=== PATIENT | female | born 1950 | race Caucasian/White ===

== ENCOUNTER 2016-08-01 12:51 | Emergency (ER) | payer OTHER, MEDICARE ==
[~2016-08-01] VITALS: Ht 165.1 cm; Wt 50.4 kg
[~2016-08-01 12:51] MED LIST: RIVA20 PO
[2016-08-01 13:08] VITALS: BP 137/73; PULSE 81; RESP 18; TEMP 98.8; O2SAT 95
[2016-08-01] MEDS ORDERED: ACETAMINOPHEN 325 MG TAB PO ONE (14:15)
[2016-08-01] MEDS ORDERED: SODIUM CHLORIDE 0.9% FLUSH 5 ML FLUSH IVF PRN (14:15)
[2016-08-01 14:18] LABS: BLOOD, URINE SMALL (NEG); GLUCOSE,URINE NEG (NEG); KETONE, URINE NEG (NEG); NITRITE,URINE NEG (NEG); PH, URINE 5.5 (5.0-8.5)
[2016-08-01 14:23] LABS: METHOD OF COLLECTION CLEAN CATCH; SQUAMOUS EPITHELIAL CELL URINE 0-5 /hpf (0-5); URINE COLOR YELLOW (YELLW/STRAW); WBC, URINE 0-2 /hpf (0-5)
[2016-08-01 14:24] LABS: COMMENT (UR) CULT NOT INDICATED; CULTURE IF INDICATED CULT NOT INDICATED
[2016-08-01 14:33] LABS: AUTOMATED NEUTROPHIL # 4.5 TH/MM3 (1.8-7.7); BASOPHIL # 0.3 TH/MM3 (0-0.2); BASOPHIL % 3.5 % (0.0-2.0); EOSINOPHIL # 0.1 TH/MM3 (0-0.4); EOSINOPHIL % 0.9 % (0.0-4.0); HEMATOCRIT 44.5 % (35.0-46.0); HEMO FLAGS DIFF FINAL; LYMPH % 33.8 % (9.0-44.0); LYMPHOCYTE # 2.7 TH/MM3 (1.0-4.8); MEAN CORPUSCULAR HEMOGLOBIN 30.6 PG (27.0-34.0); MEAN CORPUSCULAR HGB CONC 33.6 % (32.0-36.0); MONO % 4.7 % (0.0-8.0); NEUT % 57.1 % (16.0-70.0); PLATELET COUNT 256 TH/MM3 (150-450); RED CELL DISTRIBUTION WIDTH 12.9 % (11.6-17.2)
[2016-08-01 14:43] LABS: CHLORIDE 109 MEQ/L (98-107); SODIUM (NA) 144 MEQ/L (136-145)
[2016-08-01 14:44] VITALS: O2SAT 97
[2016-08-01 14:47] LABS: ANION GAP 8 MEQ/L (5-15); APTT (PATIENT) 21.2 SEC (24.3-30.1); BLOOD UREA NITROGEN 11 MG/DL (7-18); PROTHROMBIN TIME - PATIENT 10.7 SEC (9.8-11.6)
[2016-08-01 14:50] LABS: ALT (GPT) 17 U/L (10-53); AST (GOT) 17 U/L (15-37); GLOMERULAR FILTRATION RATE 63 ML/MIN (>89)
[2016-08-01 14:52] LABS: TOTAL BILIRUBIN ADULT 0.6 MG/DL (0.2-1.0)
[2016-08-01 14:53] LABS: ALKALINE PHOSPHATASE 93 U/L (45-117)
--- NOTE | 2016-08-01 14:58 | PD ---
HPI Chief Complaint: Abdominal Pain Time Seen by Provider: 13:55 Travel History International Travel<30 days: No Contact w/Intl Traveler<30days: No Traveled to known affect area: No History of Present Illness HPI Patient is a 65-year-old female presents emergency department for a week's worth history of abdominal pain nausea and vomiting which is nonbloody and nonbilious. No diarrhea no constipation. Patient states she does have a history of diverticulitis but this appears somewhat different. No fevers. No blood the stool. Patient denies any chest pain and shortness of breath. States her pain is primarily on the left side of her abdomen and periumbilical. Cramping in nature. PFSH Past Medical History Hx Anticoagulant Therapy: Yes Anxiety: Yes Heart Rhythm Problems: No Cardiac Catheterization: No High Cholesterol: No Chest Pain: Yes Congestive Heart Failure: No COPD: Yes Cerebrovascular Accident: No Diabetes: No Diminished Hearing: No Diverticulitis: Yes Heparin Induced Thrombocytopen: No Hypertension: No Kidney Stones: Yes Respiratory: Yes Immunizations Current: Yes Myocardial Infarction: No Pneumonia: Yes Influenza Vaccination: No ?: Not Menopausal: Yes : 6 Para: 6 Tubal Ligation: Yes Past Surgical History Abdominal Surgery: Yes (strangulated hernia repair x2) Section: Yes (X 1) Coronary Artery Bypass Graft: No Pacemaker: No Family History Family Myocardial Infarction: Yes (FATHER PASSED @ AGE 44 FROM [place]) Social History Alcohol Use: No Tobacco Use: Yes (/ ppd) Substance Use: No Allergies-Medications (Allergen,Severity, Reaction): Coded Allergies: Bactrim (Verified Allergy, Severe, 08/01/16) HIVES Reported Meds & Prescriptions Reported Meds & Active Scripts Active Zofran Odt (Ondansetron Odt) 4 Mg Tab 4 Mg SL Q6HR PRN Bentyl (Dicyclomine HCl) 10 Mg Cap 10 Mg PO TID PRN Review of Systems Except as stated in HPI: all other systems reviewed are Neg Physical Exam Narrative GENERAL: [Well-developed, thin but in no apparent distress. SKIN: Warm and dry. HEAD: Atraumatic. Normocephalic. EYES: Pupils equal and round. No scleral icterus. No injection or drainage. ENT: No nasal bleeding or discharge. Mucous membranes pink and moist. NECK: Trachea midline. No JVD. CARDIOVASCULAR: Regular rate and rhythm. No murmur appreciated. RESPIRATORY: No accessory muscle use. Clear to auscultation. Breath sounds equal bilaterally. GASTROINTESTINAL: Abdomen soft, minimal tenderness left upper quadrant., nondistended. Hepatic and splenic margins not palpable. No rebound no percussive tenderness. MUSCULOSKELETAL: No obvious deformities. No clubbing. No cyanosis. No edema. NEUROLOGICAL: Awake and alert. No obvious cranial nerve deficits. Motor grossly within normal limits. Normal speech. PSYCHIATRIC: Appropriate mood and affect; insight and judgment normal. Data Data Last Documented VS Vital Signs Date Time Temp Pulse Resp B/P Pulse Ox O2 Delivery O2 Flow Rate FiO2 08/01/16 16:44 67 18 126/62 96 Room Air 08/01/16 13:08 98.8 Orders Complete Blood Count With Diff (08/01/16 14:07) Comprehensive Metabolic Panel (08/01/16 14:07) Lipase (08/01/16 14:07) Lactic Acid (08/01/16 14:07) Prothrombin Time / Inr (Pt) (08/01/16 14:07) Act Partial Throm Time (Ptt) (08/01/16 14:07) Urinalysis - C+S If Indicated (08/01/16 14:07) Ct Abd/Pel W Iv Contrast(Rout) (08/01/16 14:07) Iv Access Insert/Monitor (08/01/16 14:07) Ecg Monitoring (08/01/16 14:07) Oximetry (08/01/16 14:07) Sodium Chloride 0.9% Flush (Ns Flush) (08/01/16 14:15) Electrocardiogram (08/01/16 14:07) Acetaminophen (Tylenol) (08/01/16 14:15) Troponin I (08/01/16 14:48) Iohexol 350 Inj (Omnipaque 350 Inj) (08/01/16 15:59) Labs Laboratory Tests Test 08/01/16 08/01/16 14:00 14:25 Urine Collection Type CLEAN CATCH Urine Color YELLOW Urine Turbidity CLEAR Urine pH 5.5 Urine Specific [place] 1.018 Urine Protein NEG mg/dL Urine Glucose (UA) NEG mg/dL Urine Ketones NEG mg/dL Urine Occult Blood SMALL Urine Nitrite NEG Urine Bilirubin NEG Urine Leukocyte Esterase NEG Urine RBC 4-9 /hpf Urine WBC 0-2 /hpf Urine Squamous Epithelial 0-5 /hpf Cells Microscopic Urinalysis Comment CULT NOT INDICATED Urine Collection Time 14:00 White Blood Count 8.0 TH/MM3 Red Blood Count 4.90 MIL/MM3 Hemoglobin 15.0 GM/DL Hematocrit 44.5 % Mean Corpuscular Volume 91.0 FL Mean Corpuscular Hemoglobin 30.6 PG Mean Corpuscular Hemoglobin 33.6 % Concent Red Cell Distribution Width 12.9 % Platelet Count 256 TH/MM3 Mean Platelet Volume 8.2 FL Neutrophils (%) (Auto) 57.1 % Lymphocytes (%) (Auto) 33.8 % Monocytes (%) (Auto) 4.7 % Eosinophils (%) (Auto) 0.9 % Basophils (%) (Auto) 3.5 % Neutrophils # (Auto) 4.5 TH/MM3 Lymphocytes # (Auto) 2.7 TH/MM3 Monocytes # (Auto) 0.4 TH/MM3 Eosinophils # (Auto) 0.1 TH/MM3 Basophils # (Auto) 0.3 TH/MM3 CBC Comment DIFF FINAL Differential Comment Prothrombin Time 10.7 SEC Prothromb Time International 1.0 RATIO Ratio Activated Partial 21.2 SEC Thromboplast Time Sodium Level 144 MEQ/L Potassium Level 4.0 MEQ/L Chloride Level 109 MEQ/L Carbon Dioxide Level 27.0 MEQ/L Anion Gap 8 MEQ/L Blood Urea Nitrogen 11 MG/DL Creatinine 0.89 MG/DL Estimat Glomerular Filtration 63 ML/MIN Rate Random Glucose 84 MG/DL Lactic Acid Level 0.6 mmol/L Calcium Level 9.0 MG/DL Total Bilirubin 0.6 MG/DL Aspartate Amino Transf 17 U/L (AST/SGOT) Alanine Aminotransferase 17 U/L (ALT/SGPT) Alkaline Phosphatase 93 U/L Troponin I LESS THAN 0.02 NG/ML Total Protein 7.6 GM/DL Albumin 3.7 GM/DL Lipase 98 U/L [facility] Medical Decision Making Medical Screen Exam Complete: Yes Emergency Medical Condition: Yes Interpretation(s) EKG shows normal sinus rhythm with a borderline right axis deviation. Normal R- wave progression. No concerning ST-T changes. Possible left atrial abnormality. This is a borderline EKG. Differential Diagnosis Diverticulitis, diverticulosis, ACS unlikely, gastritis, pancreatitis Narrative Course Patient 65-year-old female presents with periumbilical pain radiating to left side. She appears well in no apparent distress. She was offered pain medicine states she is driving home therefore given Tylenol. Patient on review of her records has presented for similar complaints in the past. Her labs are reassuring troponin negative lipase negative CBC and CMP negative. CT abdomen performed and shows no acute abnormality. She has uncompensated diverticulosis. Discussed the results with the patient and recommend follow-up with a GI doctor as well as her primary care physician. Discussed return to ED criteria. She stable for discharge. Diagnosis Primary Impression: Epigastric abdominal pain Referrals: Meghan Chatterjee MD Med/Other Pt SpecificInfo: Prescription(s) given Scripts Ondansetron Odt (Zofran Odt)4 Mg Tab4 Mg SL Q6HR PRN (Nausea/Vomiting) #30 TAB Ref 0 Prov:Nicolas Mi MD 08/01/16 Dicyclomine (Bentyl)10 Mg Cap10 Mg PO TID PRN (Bowel Management) #20 CAP Ref 0 Prov:Nicolas Mi MD 08/01/16 Disposition: 01 DISCHARGE HOME Condition: Stable Nicolas Mi MD Aug 01, 2016 14:58
[2016-08-01] MEDS ORDERED: IOHEXOL 350 MG/ML 10 ML VIAL (for RAD DIAG) IV ONE (15:59)
[2016-08-01 16:44] VITALS: BP 126/62; PULSE 67; RESP 18; O2SAT 96
--- NOTE | 2016-08-01 16:45 | RADHPO ---
EXAM DATE/TIME: 08/01/2016 15:53 [facility] COMPARISON: CT ABDOMEN & PELVIS W CONTRAST, May 05, 2015, 18:00. INDICATIONS : Mid and lower abdominal pain radiating into lower back for one week. IV CONTRAST: 100 cc Omnipaque 350 (iohexol) IV ORAL CONTRAST: No oral contrast ingested. RADIATION DOSE: 5.42 CTDIvol (mGy) MEDICAL HISTORY : Chronic obstructive pulmonary disease. SURGICAL HISTORY : Tubal ligation. section. Strangulated hernia ENCOUNTER: Initial ACUITY: 1 week PAIN SCALE: 5/10 LOCATION: Right umbilical lower back TECHNIQUE: Volumetric scanning of the abdomen and pelvis was performed. Using automated exposure control and ad justment of the mA and/or kV according to patient size, radiation dose was kept as low as reasonably achievable to obtain optimal diagnostic quality images. FINDINGS: There is mild hepatomegaly which is unchanged. No focal hepatic mass is noted. No biliary ductal dila tation is noted. The gallbladder is unremarkable. The spleen is normal. The pancreas is normal. T he adrenal glands are stable. Right renal atrophy is again noted and unchanged. A tiny left renal cy st is stable. No hydronephrosis or new solid renal mass is noted. The abdominal aorta is calcified b ut is not aneurysmally dilated. The inferior vena cava is normal. There is no paraaortic, retroperi toneal or mesenteric lymphadenopathy. Uncomplicated sigmoid diverticulosis is noted. The uterus is unremarkable. The urinary bladder is unremarkable. Degenerative changes and scoliosis of the lumbar spine are noted. Fibrotic scarring is noted within the lung bases. There is a small umbilical patrick ia containing only fat. CONCLUSION: 1. Uncomplicated sigmoid diverticulosis. 2. Hepatomegaly. 3. Stable right renal atrophy. 4. Tiny stable left renal cyst. 5. Small umbilical hernia containing only fat. 6. Degenerative changes and scoliosis of the lumbar spine. Nicolas Payne MD on August 01, 2016 at 16:22 Board Certified Radiologist. This report was verified electronically.
[2016-08-01] MEDS ORDERED: ZOFR4TAB3 SL (17:04)
[2016-08-01] MEDS ORDERED: DICY10 PO (17:04)
--- NOTE | 2016-08-02 22:52 | EKG ---
Date Performed: 08/01/2016 Time Performed: 14:15:40 PTAGE: 65 years EKG: Sinus rhythm Possible left atrial abnormality Indeterminate axis Borderline ECG PREVIOUS TRACING : 04/22/2015 13.25 Compared to prior tracing no significant change DOCTOR: Florin Tay Interpretating Date/Time 08/02/2016 22:50:06
== END 2016-08-01 17:22 | disposition home or self-care (01) ==
LOC: PHED 12:51
DX: R10.13 Epigastric pain (principal); J44.9 Chronic obstructive pulmonary disease, unspecified; F17.200 Nicotine dependence, unspecified, uncomplicated
CPT/HCPCS: 74177; 80053; 81001; 83605; 83690; 84484; 85025; 85610; 85730; 93005; 99284; Q9967

== ENCOUNTER 2017-01-15 16:31 | Observation (INO) | payer MEDICARE, OTHER ==
[2017-01-15] VITALS (11 sets, daily range): BP systolic 96–150; BP diastolic 56–77; PULSE 70–88; RESP 16–20; TEMP 98.2–98.4; O2SAT 94–98
[~2017-01-15] VITALS: Ht 170.2 cm; Wt 54.1 kg
[~2017-01-15 16:31] MED LIST changes: +DICY10 PO; -RIVA20 PO; +ZOFR4TAB3 SL
[2017-01-15] MEDS ORDERED: ASPIRIN 81 MG CHEW TAB PO ONE (17:00)
[2017-01-15] MEDS ORDERED: SODIUM CHLORIDE 0.9% FLUSH 10 ML FLUSH IVF PRN (17:00)
[2017-01-15] MEDS: NITROGLYCERIN 0.4 MG SL 25 TABS/BTL SL SCH ×3 (17:10→17:19)
[2017-01-15 17:12] LABS: AUTOMATED NEUTROPHIL # 5.1 TH/MM3 (1.8-7.7); BASOPHIL # 0.1 TH/MM3 (0-0.2); BASOPHIL % 1.2 % (0.0-2.0); EOSINOPHIL # 0.1 TH/MM3 (0-0.4); EOSINOPHIL % 1.1 % (0.0-4.0); HEMO FLAGS DIFF FINAL; LYMPHOCYTE # 2.7 TH/MM3 (1.0-4.8); MEAN CELL VOLUME 90.7 FL (80.0-100.0); MEAN CORPUSCULAR HEMOGLOBIN 29.9 PG (27.0-34.0); MONO % 6.5 % (0.0-8.0); NEUT % 60.2 % (16.0-70.0); PLATELET COUNT 322 TH/MM3 (150-450); RED BLOOD COUNT 4.74 MIL/MM3 (4.00-5.30); RED CELL DISTRIBUTION WIDTH 12.3 % (11.6-17.2); WHITE BLOOD COUNT 8.6 TH/MM3 (4.0-11.0)
[2017-01-15 17:19] LABS: CHLORIDE 108 MEQ/L (98-107); POTASSIUM 3.8 MEQ/L (3.5-5.1); SODIUM (NA) 142 MEQ/L (136-145)
[2017-01-15 17:23] LABS: ANION GAP 6 MEQ/L (5-15); BICARBONATE 27.9 MEQ/L (21.0-32.0); BLOOD UREA NITROGEN 12 MG/DL (7-18); MAGNESIUM 2.3 MG/DL (1.5-2.5)
--- NOTE | 2017-01-15 17:25 | RADRPT ---
EXAM DATE/TIME: 01/15/2017 16:54 [facility] COMPARISON: CHEST SINGLE AP, July 18, 2014, 14:04. INDICATIONS : Chest pain. MEDICAL HISTORY : Chronic obstructive pulmonary disease. SURGICAL HISTORY : None. ENCOUNTER: Initial ACUITY: 1 day PAIN SCORE: 5/10 LOCATION: Left chest FINDINGS: A single view of the chest demonstrates the lungs to be symmetrically aerated without evidence of mas s, infiltrate or effusion. The cardiomediastinal contours are unremarkable. Osseous structures are intact. CONCLUSION: No acute disease. Saji Das Jr., MD on January 15, 2017 at 17:23 Board Certified Radiologist. This report was verified electronically.
[2017-01-15 17:26] LABS: GLOMERULAR FILTRATION RATE 71 ML/MIN (>89)
[2017-01-15 17:30] LABS: APTT (PATIENT) 26.4 SEC (24.3-30.1); PROTHROMBIN TIME - PATIENT 10.7 SEC (9.8-11.6)
[2017-01-15 17:40] LABS: CREATINE KINASE 74 U/L (26-192)
--- NOTE | 2017-01-15 17:54 | PD ---
HPI Chief Complaint: Chest Pain Time Seen by Provider: 16:41 Travel History International Travel<30 days: No Contact w/Intl Traveler<30days: No Traveled to known affect area: No History of Present Illness HPI 66-year-old female here for evaluation of chest pain. Patient port that she has been smoking cigarettes since age 17 usually about a half a pack per day. 2 days ago she decided that she wanted to stop smoking, and started using 31 mg nicotine patch. Yesterday the patient had a fluttering sensation in her chest. Today she has been having substernal chest pressure that has been worsening throughout the day today and started when she woke up this morning. She denies any known history of cardiac disease, however her father of an [place] at the age of 45. Patient reports history of DVT several years ago during a hospitalization which may been from a PICC line that she had. She is not currently on any anti-coagulation. She denies dyspnea. No fevers, chills, cough, or recent illness. No paresthesias or motor deficits. No recent travel or immobilization. Currently the pain is 5 out of 10, substernal, described as pressure/tightness, radiates to her right shoulder. PFSH Past Medical History Hx Anticoagulant Therapy: Yes Anxiety: Yes Heart Rhythm Problems: No Cardiac Catheterization: No High Cholesterol: No Chest Pain: Yes Congestive Heart Failure: No COPD: Yes Cerebrovascular Accident: No Diabetes: No Diminished Hearing: No Diverticulitis: Yes Heparin Induced Thrombocytopen: No Hypertension: No Kidney Stones: Yes Respiratory: Yes Immunizations Current: Yes Myocardial Infarction: No Pneumonia: Yes Influenza Vaccination: No ?: Not Menopausal: Yes : 6 Para: 6 Tubal Ligation: Yes Past Surgical History Abdominal Surgery: Yes (strangulated hernia repair x2) Section: Yes (X 1) Coronary Artery Bypass Graft: No Pacemaker: No Family History Family Myocardial Infarction: Yes (FATHER PASSED @ AGE 44 FROM [place]) Social History Alcohol Use: No Tobacco Use: Yes (3/4 ppd) Substance Use: No Allergies-Medications (Allergen,Severity, Reaction): Coded Allergies: Bactrim (Verified Allergy, Severe, HIVES, 01/15/17) Reported Meds & Prescriptions Reported Meds & Active Scripts Active No Active Prescriptions or Reported Medications Review of Systems Except as stated in HPI: all other systems reviewed are Neg Physical Exam Narrative GENERAL: Well-developed, thin, no apparent distress. SKIN: Focused skin assessment warm/dry. HEAD: Atraumatic. Normocephalic. EYES: Pupils equal and round. No scleral icterus. No injection or drainage. ENT: Mucous membranes pink and moist. NECK: Trachea midline. No JVD. CARDIOVASCULAR: Regular rate and rhythm. Distal pulses brisk and equal bilaterally. RESPIRATORY: No accessory muscle use. Clear to auscultation. Breath sounds equal bilaterally. GASTROINTESTINAL: Abdomen soft, non-tender, nondistended. MUSCULOSKELETAL: No obvious deformities. No clubbing. No cyanosis. No edema. NEUROLOGICAL: Awake and alert. No obvious cranial nerve deficits. Motor grossly within normal limits. Normal speech. PSYCHIATRIC: Appropriate mood and affect; insight and judgment normal. Data Data Last Documented VS Vital Signs Date Time Temp Pulse Resp B/P Pulse Ox O2 Delivery O2 Flow Rate FiO2 01/15/17 17:28 16 01/15/17 17:26 78 96/59 98 Room Air 01/15/17 16:39 98.4 Orders Basic Metabolic Panel (Bmp) (01/15/17 16:52) Ckmb (Isoenzyme) Profile (01/15/17 16:52) Complete Blood Count With Diff (01/15/17 16:52) D-Dimer (01/15/17 16:52) Magnesium (Mg) (01/15/17 16:52) Prothrombin Time / Inr (Pt) (01/15/17 16:52) Act Partial Throm Time (Ptt) (01/15/17 16:52) Troponin I (01/15/17 16:52) Chest, Single Ap (01/15/17 16:52) Ecg Monitoring (01/15/17 16:52) Bilateral Bp Monitoring (01/15/17 16:52) Iv Access Insert/Monitor (01/15/17 16:52) Oximetry (01/15/17 16:52) Oxygen Administration (01/15/17 16:52) Aspirin Chew (Aspirin Chew) (01/15/17 17:00) Sodium Chloride 0.9% Flush (Ns Flush) (01/15/17 17:00) Nitroglycerin Sl (Nitrostat Sl) (01/15/17 17:00) Labs Laboratory Tests Test 01/15/17 17:00 White Blood Count 8.6 TH/MM3 Red Blood Count 4.74 MIL/MM3 Hemoglobin 14.2 GM/DL Hematocrit 43.0 % Mean Corpuscular Volume 90.7 FL Mean Corpuscular Hemoglobin 29.9 PG Mean Corpuscular Hemoglobin 33.0 % Concent Red Cell Distribution Width 12.3 % Platelet Count 322 TH/MM3 Mean Platelet Volume 8.0 FL Neutrophils (%) (Auto) 60.2 % Lymphocytes (%) (Auto) 31.0 % Monocytes (%) (Auto) 6.5 % Eosinophils (%) (Auto) 1.1 % Basophils (%) (Auto) 1.2 % Neutrophils # (Auto) 5.1 TH/MM3 Lymphocytes # (Auto) 2.7 TH/MM3 Monocytes # (Auto) 0.6 TH/MM3 Eosinophils # (Auto) 0.1 TH/MM3 Basophils # (Auto) 0.1 TH/MM3 CBC Comment DIFF FINAL Differential Comment Prothrombin Time 10.7 SEC Prothromb Time International 1.0 RATIO Ratio Activated Partial 26.4 SEC Thromboplast Time D-Dimer Quantitative (PE/DVT) 0.25 MG/L FEU Sodium Level 142 MEQ/L Potassium Level 3.8 MEQ/L Chloride Level 108 MEQ/L Carbon Dioxide Level 27.9 MEQ/L Anion Gap 6 MEQ/L Blood Urea Nitrogen 12 MG/DL Creatinine 0.81 MG/DL Estimat Glomerular Filtration 71 ML/MIN Rate Random Glucose 121 MG/DL Calcium Level 9.7 MG/DL Magnesium Level 2.3 MG/DL Total Creatine Kinase 74 U/L Troponin I LESS THAN 0.02 NG/ML MDM Medical Decision Making Medical Screen Exam Complete: Yes Emergency Medical Condition: Yes Medical Record Reviewed: Yes Interpretation(s) EKG: Sinus, rate 77, rightward axis, and normal intervals, possible RVH, no acute ischemic abnormality. Differential Diagnosis ACS, pneumothorax, pericarditis, PE, pneumonia, dissection, GERD, anxiety Narrative Course Initial vital signs show heart rate 88, blood pressure 139/72, pulse ox 97% on room air, oral temp of 98.4 from high. CBC is unremarkable. BMP is unremarkable. Cardiac enzymes are negative. D-dimer is negative at 0.25. Chest x-ray: No acute disease. Patient was given 2 sublingual nitroglycerin, and after the second dose she states her pain has resolved. She was also given a full aspirin. She was made aware of all findings. Given her risk factors of age, smoking history, and family history of heart disease, the patient will be admitted for further cardiac evaluation in the chest pain center. She is amenable to this plan. Case discussed with hospitalist Dr. Leonard who will admit the patient to his service. Diagnosis Primary Impression: Chest pain Qualified Code: R07.9 - Chest pain, unspecified type Admitting Information Admitting Physician Requests: Observation Scripts No Active Prescriptions or Reported Meds Daniele Ram MD Jan 15, 2017 17:53
[2017-01-15] MEDS ORDERED: ACETAMINOPHEN 325 MG TAB PO PRN (18:15)
[2017-01-15] MEDS ORDERED: NITROGLYCERIN 0.4 MG SL 25 TABS/BTL SL PRN (18:15)
[2017-01-15] MEDS ORDERED: ONDANSETRON HCL 4 MG/2 ML VIAL IV PUSH PRN (18:15)
[2017-01-15] MEDS: SODIUM CHLOR 0.9% 1000 ML INJ 1,000 ML IV SCH (18:35)
[2017-01-15] MEDS ORDERED: diphenhydrAMINE HCL 50 MG CAP PO ONE (22:15)
[2017-01-16] VITALS: BP 126/63; PULSE 59; RESP 18; TEMP 97.8; O2SAT 93
[2017-01-16 04:00] VITALS: BP 119/70; PULSE 74; RESP 17; TEMP 97.9; O2SAT 90
[2017-01-16] MEDS: SODIUM CHLOR 0.9% 1000 ML INJ 1,000 ML IV SCH (04:15)
[2017-01-16 07:00] VITALS: BP 132/68; PULSE 70; RESP 17; TEMP 97.4; O2SAT 90
--- NOTE | 2017-01-16 08:09 | HHI.HP ---
[facility] Service [facility] Primary Care Physician Rashaun Spaulding M.D. Admission Diagnosis chest pain Diagnoses: (1) Chest pain Diagnosis: Principal Chief Complaint: chest pain Travel History International Travel<30 Days: No Contact w/Intl Traveler <30 Da: No Traveled to Known Affected Are: No History of Present Illness Written by Марина Bone PA-C acting as scribe for Dr. Leonard on 01/16/17 at ~ 0800. 66 year-old female with history of COPD and anxiety and recurrent kidney stones presents with complaint of chest pain. The patient states chest pain started 2 days ago across the left chest not brought on by anything in particular. She describes it as a "tightness, heaviness, pressure, discomfort" sitting was constant yesterday gradually worsening. She admits to some pain in the right shoulder. She admits to episodes of diaphoresis over the forehead. She's had issues in the past but states this is not similar to previous chest pain. She denies any recent fevers or chills, cough, shortness of breath. She denies any chest pain or dyspnea on exertion. Patient had a normal nuclear stress test on 01/19/13. She states she was unable to do the treadmill test at that time. Patient denies history of hypertension, diabetes, hyperlipidemia, coronary artery disease. Patient did start using a nicotine patch day before yesterday but she states she has use nicotine patches in the past. Review of Systems Except as stated in HPI: all other systems reviewed are Neg Past Family Social History Past Medical History COPD Anxiety Nephrolithiasis Diverticulitis Bacteremia during hospitalization 2 years ago requiring PICC line. DVT when hospitalized 2 years ago for strangulated hernia; was on Xarelto for 1.5 years. Stomach ulcer while hospitalized Past Surgical History Strangulated hernia repair 2 Tubal ligation Reported Medications Reported Meds & Active Scripts Active No Active Prescriptions or Reported Medications Allergies: Coded Allergies: Bactrim (Verified Allergy, Severe, HIVES, 01/15/17) Family History Father of [place] at age 44. Social History Patient states she started using a nicotine patch day before yesterday. She has tried using these as well as e-cigarettes in the past to try to quit smoking. Smoked one pack per day of cigarettes since age 17. Denies alcohol use. Physical Exam Vital Signs Vital Signs Date Time Temp Pulse Resp B/P Pulse Ox O2 Delivery O2 Flow Rate FiO2 01/16/17 04:00 97.9 74 17 119/70 90 01/16/17 00:00 97.8 59 18 126/63 93 01/15/17 21:25 98.2 72 20 122/71 96 01/15/17 20:45 72 16 118/64 95 Room Air 01/15/17 20:00 70 16 100/57 94 Room Air 01/15/17 19:10 76 16 95 01/15/17 19:00 76 16 150/77 95 Room Air 01/15/17 18:10 71 16 103/66 96 Room Air 01/15/17 17:28 16 01/15/17 17:26 78 16 96/59 98 Room Air 01/15/17 17:20 83 16 106/56 95 Room Air 01/15/17 17:16 87 16 119/63 95 Room Air 01/15/17 17:14 18 95 Room Air 01/15/17 17:14 95 Room Air 01/15/17 17:00 88 119/63 116/60 01/15/17 16:39 98.4 78 18 139/72 97 Physical Exam GENERAL: This is a thin, well-developed patient, in no apparent distress. SKIN: No rashes, ecchymoses or lesions. Warm and dry. HEAD: Atraumatic. Normocephalic. EYES: No scleral icterus. No injection or drainage. NECK: Trachea midline. CHEST: No reproducible chest wall tenderness. CARDIOVASCULAR: Regular rate and rhythm without murmurs, gallops, or rubs. RESPIRATORY: Diminished breath sounds throughout. Clear to auscultation. Breath sounds equal bilaterally. No wheezes, rales, or rhonchi. MUSCULOSKELETAL: Tender over right shoulder. No lower extremity edema bilaterally NEUROLOGICAL: Awake and alert. Motor grossly within normal limits. Normal speech. Laboratory Laboratory Tests Test 01/15/17 01/15/17 01/16/17 17:00 22:36 04:06 White Blood Count 8.6 Red Blood Count 4.74 Hemoglobin 14.2 Hematocrit 43.0 Mean Corpuscular Volume 90.7 Mean Corpuscular Hemoglobin 29.9 Mean Corpuscular Hemoglobin 33.0 Concent Red Cell Distribution Width 12.3 Platelet Count 322 Mean Platelet Volume 8.0 Neutrophils (%) (Auto) 60.2 Lymphocytes (%) (Auto) 31.0 Monocytes (%) (Auto) 6.5 Eosinophils (%) (Auto) 1.1 Basophils (%) (Auto) 1.2 Neutrophils # (Auto) 5.1 Lymphocytes # (Auto) 2.7 Monocytes # (Auto) 0.6 Eosinophils # (Auto) 0.1 Basophils # (Auto) 0.1 CBC Comment DIFF FINAL Differential Comment Prothrombin Time 10.7 Prothromb Time International 1.0 Ratio Activated Partial 26.4 Thromboplast Time D-Dimer Quantitative (PE/DVT) 0.25 Sodium Level 142 Potassium Level 3.8 Chloride Level 108 Carbon Dioxide Level 27.9 Anion Gap 6 Blood Urea Nitrogen 12 Creatinine 0.81 Estimat Glomerular Filtration 71 Rate Random Glucose 121 Calcium Level 9.7 Magnesium Level 2.3 Total Creatine Kinase 74 Troponin I LESS THAN 0.02 LESS THAN 0.02 LESS THAN 0.02 Result Diagram: 01/15/17 1700 01/15/17 170 Imaging Last Impressions Chest X-Ray 01/15/17 1652 Signed Impressions: Service Date/Time: Sunday, January 15, 2017 16:54 - CONCLUSION: No acute disease. Saji Das Jr., MD Assessment and Plan Assessment and Plan 66-year-old female with: Chest pain: Across the left chest with pain also in the right shoulder. Did recently start using a nicotine patch again but has used these in the past without issue. Troponin 3 less than 0.02. EKGs 2 personally interpreted with sinus rhythm, right axis deviation, but no evidence of ischemia. Chest x- ray with no acute disease. Patient received 324 mg of aspirin and 2 doses of nitroglycerin in the ED. -Nitroglycerin prn chest pain -Telemetry -Patient is unable to perform an ETT. Nuclear stress test ordered. Continue IVF for now as patient is NPO, decrease rate to 55 mL/hr. Administer Duoneb prior to stress test. GI prophylaxis: Protonix 40 mg po daily. DVT prophylaxis: TEDs/SCDs, early ambulation. This note was transcribed by rukhsana [NOEMI Mcginnis ]. I, Dr. Neeru Leonard, personally performed the history, physical exam, and medical decision making; and confirmed the accuracy of the information in the transcribed note. Problem Qualifiers (1) Chest pain: Qualified Code: R07.9 - Chest pain, unspecified type Марина Bone Jan 16, 2017 08:09 Neeru Leonard MD Jan 16, 2017 08:44
[2017-01-16] MEDS ORDERED: PANTOPRAZOLE SOD 40 MG DELAYED RELEASE TAB PO SCH (09:00)
[2017-01-16] MEDS ORDERED: RESP: ALBUTEROL 2.5 MG/IPRATROPIUM 0.5 MG NEB (SCH) NEB ONE (09:00)
[2017-01-16 11:36] VITALS: BP 134/66; PULSE 72; RESP 18; O2SAT 95
[2017-01-16] MEDS ORDERED: REGADENOSON INJ 0.4 MG/5 ML SYR IV ONE (12:18)
--- NOTE | 2017-01-16 14:06 | RADRPT ---
EXAM DATE/TIME: 01/16/2017 12:18 [facility] COMPARISON: No previous studies available for comparison. INDICATIONS : Substernal chest pain. Unable to walk on treadmill. DOSE: 25.9 mCi Tc99m Myoview at stress. 8.3 mCi Tc99m Myoview at rest. 0.4 mg Lexiscan STRESS SYMPTOMS: Chest pressure, dyspnea and tingling. EJECTION FRACTION: > 70% MEDICAL HISTORY : Chronic obstructive pulmonary disease. Diverticulitis. Smoker. SURGICAL HISTORY : Tubal ligation. ENCOUNTER: Initial ACUITY: 2 days PAIN SCALE: 8/10 LOCATION: Substernal chest TECHNIQUE: The patient underwent pharmacologic stress with infusion of prescribed dose. Continuous ECG tracing was monitored during stress. Gated SPECT imaging was performed after stress and conventional SPECT i maging was performed at rest. The examination was performed on a SPECT/CT scanner, both attenuation and non-corrected datasets were reviewed. FINDINGS: DISTRIBUTION: The maximum perfused segment at stress is in the posterobasal wall. PERFUSION STUDY: Is mildly diminished relative perfusion involving the cardiac apex without evidence of redistribution . GATED STUDY: There is intact wall motion and thickening without hypokinetic or dyskinetic segments. CONCLUSION: No significant fixed or reversible perfusion abnormalities. Satisfactory LV function. RISK CATEGORY: Low (<1% Annual Mortality Rate) Ko Langford MD on January 16, 2017 at 14:01 Board Certified Radiologist. This report was verified electronically.
--- NOTE | 2017-01-16 14:47 | EKG ---
Date Performed: 01/16/2017 Time Performed: 08:02:32 PTAGE: 66 years EKG: Sinus rhythm LEFT POSTERIOR FASCICULAR BLOCK Right axis deviation Since previous tracing, no significant change n oted ABNORMAL ECG PREVIOUS TRACING : 01/15/2017 16.40 DOCTOR: Ramirez Alicia Interpretating Date/Time 01/16/2017 14:45:21
--- NOTE | 2017-01-16 14:47 | EKG ---
Date Performed: 01/15/2017 Time Performed: 16:40:06 PTAGE: 66 years EKG: Sinus rhythm RIGHT AXIS DEVIATION Compared to prior tracing no significant change PREVIOUS TRACING : 08/01/16 DOCTOR: Ramirez Alicia Interpretating Date/Time 01/16/2017 14:46:11
[2017-01-16 15:00] VITALS: BP 117/58; PULSE 70; PULSE 76; RESP 18; TEMP 97.8; O2SAT 94
[2017-01-16] MEDS ORDERED: ALBUAER3 INH (15:23)
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
--- NOTE | 2017-01-17 17:02 | TR ---
Date Performed: 01/16/2017 Time Performed: 12:49:04 DOCTOR: Justen Teague DRUG LIST: CLINICAL HISTORY: REASON FOR TEST: Chest pain REASON FOR ENDING: OBSERVATION: CONCLUSION: Lexiscan stress test was performed under standard four minute protocol. Radionuclid e was injected one minute prior to ending the test. No electrocardiographic abormalities were present to suggest ischemia. Nuclear imaging and interpretation are pending. COMMENTS:
== END 2017-01-16 16:20 | disposition home or self-care (01) ==
LOC: PHED 16:31 → PHEDA 18:05 → PHICU 20:56
PROVIDERS: ADMIT Internal Medicine; ATTEND Internal Medicine
DX: R07.89 Other chest pain (principal); F17.210 Nicotine dependence, cigarettes, uncomplicated; J44.9 Chronic obstructive pulmonary disease, unspecified; F41.9 Anxiety disorder, unspecified; R94.31 Abnormal electrocardiogram [ECG] [EKG]; Z82.49 Family history of ischemic heart disease and other diseases of the circulatory system; Z86.718 Personal history of other venous thrombosis and embolism
CPT/HCPCS: 71010; 78452; 80048; 82550; 83735; 84484; 85025; 85379; 85610; 85730; 93005; 93017; 94664; 99285; A9502; G0378; J2785; J7030; Q0163

== ENCOUNTER 2017-03-10 10:26 | Emergency (ER) | payer OTHER ==
[~2017-03-10] VITALS: Ht 165.1 cm; Wt 49.0 kg
[~2017-03-10 10:26] MED LIST changes: +ALBUAER3 INH; -DICY10 PO; -ZOFR4TAB3 SL
[2017-03-10 10:30] VITALS: BP 151/94; PULSE 83; RESP 16; TEMP 98.3; O2SAT 96
[2017-03-10] MEDS ORDERED: SODIUM CHLOR 0.9% 1000 ML INJ 1,000 ML IV ONE (10:41)
[2017-03-10] MEDS ORDERED: ACETAMINOPHEN 325 MG TAB PO ONE (10:45)
[2017-03-10] MEDS ORDERED: ONDANSETRON HCL 4 MG/2 ML VIAL IVP ONE (10:45)
[2017-03-10] MEDS ORDERED: SODIUM CHLORIDE 0.9% FLUSH 10 ML FLUSH IVF PRN (10:45)
[2017-03-10 10:49] LABS: BLOOD GAS BASE EXCESS 2.9 mmol/L (-2-2); BLOOD GAS CARBOXYHEMOGLOBIN 5.6 % (0-4); BLOOD GAS HCO3 26 mmol/L (22-26); BLOOD GAS O2 HGB SATURATION 92 % (90-100); BLOOD GAS OXYGEN CONTENT 19.6 Vol % (12.0-20.0); BLOOD GAS PCO2 36 mmHG (38-42); BLOOD GAS PO2 90 mmHG (61-120); BLOOD GAS TOTAL HGB 15.2 G/DL (12.0-16.0); CRITICAL VALUE YES; FIO2 21 %; OXYGEN DEVICE ROOM AIR; TEMP CORR TO 98.6
[2017-03-10 10:50] LABS: DRAW SITE LT RADIAL; NUMBER OF ARTERIAL PUNCTURES 1; STAT YES; ULNAR PULSE PRESENT
[2017-03-10 11:27] LABS: HEMATOCRIT 45.2 % (35.0-46.0); HEMO FLAGS DIFF FINAL; MEAN CELL VOLUME 90.4 FL (80.0-100.0); MEAN CORPUSCULAR HEMOGLOBIN 30.4 PG (27.0-34.0); MEAN CORPUSCULAR HGB CONC 33.6 % (32.0-36.0); PLATELET COUNT 285 TH/MM3 (150-450); RED CELL DISTRIBUTION WIDTH 12.6 % (11.6-17.2); WHITE BLOOD COUNT 7.4 TH/MM3 (4.0-11.0)
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
[2017-03-10 11:28] LABS: AUTOMATED NEUTROPHIL # 4.7 TH/MM3 (1.8-7.7); BASOPHIL # 0.1 TH/MM3 (0-0.2); EOSINOPHIL # 0.1 TH/MM3 (0-0.4); EOSINOPHIL % 1.2 % (0.0-4.0); LYMPH % 28.4 % (9.0-44.0); LYMPHOCYTE # 2.1 TH/MM3 (1.0-4.8); MONO % 5.3 % (0.0-8.0); NEUT % 64.1 % (16.0-70.0)
[2017-03-10 11:39] LABS: POTASSIUM 4.3 MEQ/L (3.5-5.1)
[2017-03-10 11:42] LABS: BICARBONATE 28.1 MEQ/L (21.0-32.0)
[2017-03-10] MEDS ORDERED: diphenhydrAMINE HCL 50 MG/ML VIAL IVP ONE (12:00)
[2017-03-10] MEDS ORDERED: PROCHLORPERAZINE INJ 10 MG/2 ML VIAL IVP ONE (12:00)
[2017-03-10 12:22] VITALS: O2SAT 97
[2017-03-10 12:23] VITALS: BP 145/74; PULSE 62; O2SAT 96
--- NOTE | 2017-03-10 12:32 | RADRPT ---
EXAM DATE/TIME: 03/10/2017 11:26 [facility] COMPARISON: No previous studies available for comparison. INDICATIONS : Headache. RADIATION DOSE: 58.25 CTDIvol (mGy) MEDICAL HISTORY : Chronic obstructive pulmonary disease. SURGICAL HISTORY : Hernia repair. ENCOUNTER: Initial ACUITY: 4 - 6 days PAIN SCALE: 10/10 LOCATION: cranial TECHNIQUE: Multiple contiguous axial images were obtained of the head. Using automated exposure control and adj ustment of the mA and/or kV according to patient size, radiation dose was kept as low as reasonably a chievable to obtain optimal diagnostic quality images. DICOM format image data is available electro nically for review and comparison. FINDINGS: CEREBRUM: The ventricles are normal for age. No evidence of midline shift, mass lesion, hemorrhage or acute in farction. No extra-axial fluid collections are seen. POSTERIOR FOSSA: The cerebellum and brainstem are intact. The 4th ventricle is midline. The cerebellopontine angle i s unremarkable. EXTRACRANIAL: The visualized portion of the orbits is intact. SKULL: The calvaria is intact. No evidence of skull fracture. CONCLUSION: Normal examination. Ko Redmond MD on March 10, 2017 at 12:29 Board Certified Radiologist. This report was verified electronically.
[2017-03-10] MEDS ORDERED: PROM25TA10 PO (12:36)
== END 2017-03-10 14:51 | disposition home or self-care (01) ==
LOC: PHED 10:26
DX: R51 Headache (principal); G47.10 Hypersomnia, unspecified; F17.200 Nicotine dependence, unspecified, uncomplicated; Z79.01 Long term (current) use of anticoagulants; Z87.09 Personal history of other diseases of the respiratory system; Z86.59 Personal history of other mental and behavioral disorders; Z87.19 Personal history of other diseases of the digestive system; Z87.442 Personal history of urinary calculi
CPT/HCPCS: 36600; 70450; 80048; 82805; 85025; 96361; 96374; 96375; 99285; J0780; J1200; J2405; J7030

== ENCOUNTER 2017-07-08 02:15 | Emergency (ER) | payer OTHER ==
[2017-07-08] VITALS (8 sets, daily range): BP systolic 79–137; BP diastolic 40–74; PULSE 86–108; RESP 20–28; TEMP 98.7–98.8; O2SAT 93–96
[~2017-07-08] VITALS: Ht 162.6 cm; Wt 47.6 kg
[~2017-07-08 02:15] MED LIST changes: +PROM25TA10 PO
[2017-07-08] MEDS ORDERED: XARE15TA PO (02:33)
[2017-07-08] MEDS ORDERED: SYMB80AE INH (02:33)
--- NOTE | 2017-07-08 02:57 | PD ---
HPI Chief Complaint: Chest Pain Time Seen by Provider: 02:20 Travel History International Travel<30 days: No Contact w/Intl Traveler<30days: No Traveled to known affect area: No History of Present Illness HPI The patient is a 66-year-old female that complains of for 5 days of chest pain which is sharp and pleuritic in on the right side lasting as long as 10-15 minutes. Coughing and deep breathing make it hurt more. She does have some nausea with some vomiting but no diaphoresis and she has slight shortness of breath. There is no radiation of the pain. She states she quit smoking for 5 days ago, she used it smoke three fourths pack a day. She came in for chest pain in December and the stress test was done which was normal. She denies any fever. PFSH Past Medical History Hx Anticoagulant Therapy: Yes Arthritis: Yes Anxiety: Yes Heart Rhythm Problems: No Cardiac Catheterization: No High Cholesterol: No Chest Pain: Yes Congestive Heart Failure: No COPD: Yes Cerebrovascular Accident: No Diabetes: No Diminished Hearing: No Diverticulitis: Yes Deep Vein Thrombosis: Yes (RIGHT ARM, UNKNOWN CAUSE) Heparin Induced Thrombocytopen: No Hypertension: Yes (NO MEDS) Kidney Stones: Yes Respiratory: Yes (COPD) Immunizations Current: Yes Myocardial Infarction: No Pneumonia: Yes Ulcer: Yes (ESOPHAGEAL ULCER) Tetanus Vaccination: > 5 Years Influenza Vaccination: Yes ?: Not Menopausal: Yes : 6 Para: 6 Tubal Ligation: Yes Past Surgical History Abdominal Surgery: Yes (strangulated hernia repair x2) Section: Yes (X 1) Coronary Artery Bypass Graft: No Pacemaker: No Other Surgery: Yes (DVT EXTRACTION RIGHT ARM: 2015) Family History Family Myocardial Infarction: Yes (FATHER PASSED @ AGE 44 FROM [place]) Social History Alcohol Use: No Tobacco Use: No (STATES QUIT 07/04/17, SMOKED SINCE AGE 17) Substance Use: No Allergies-Medications (Allergen,Severity, Reaction): Coded Allergies: sulfamethoxazole (Unverified Allergy, Severe, HIVES, 07/08/17) trimethoprim (Unverified Allergy, Severe, HIVES, 07/08/17) Reported Meds & Prescriptions Reported Meds & Active Scripts Active Guaifenesin DAC Liq (Rsdrwsgjxunzfva-Pyatdly-Qbizwidpfcm Liq) 30-10-100 Mg/5 Ml Soln 10 Ml PO Q4H PRN Reported Xarelto (Rivaroxaban) 15 Mg Tab 15 Mg PO DAILY Symbicort Inh (Budesonide/Formoterol Fumarate) 80-4.5 Mcg/Act Aero 2 Puff INH Q12HR Review of Systems Except as stated in HPI: all other systems reviewed are Neg Physical Exam Narrative GENERAL: The patient is alert, oriented 3 in slight respiratory distress but in moderate distress with her chest pain. Her vital signs show heart rate of 102 with respirations of 28 and oximetry 94%. SKIN: Focused skin assessment warm/dry. HEAD: Atraumatic. Normocephalic. EYES: Pupils equal and round. No scleral icterus. No injection or drainage. ENT: No nasal bleeding or discharge. Mucous membranes pink and moist. NECK: Trachea midline. No JVD. CARDIOVASCULAR: Regular rate and rhythm. No murmur appreciated. RESPIRATORY: No accessory muscle use. Scattered wheezes are heard in all lung odell. Breath sounds equal bilaterally. GASTROINTESTINAL: Abdomen soft, non-tender, nondistended. Hepatic and splenic margins not palpable. MUSCULOSKELETAL: No obvious deformities. No clubbing. No cyanosis. No edema. I can completely reproduce the patient's pain by pressing on the chest wall where she perceives her pain. NEUROLOGICAL: Awake and alert. No obvious cranial nerve deficits. Motor grossly within normal limits. Normal speech. PSYCHIATRIC: Appropriate mood and affect; insight and judgment normal. Data Data Last Documented VS Vital Signs Date Time Temp Pulse Resp B/P (MAP) Pulse Ox O2 Delivery O2 Flow Rate FiO2 07/08/17 04:03 79/57 (64) 07/08/17 04:02 98.7 108 28 96 Room Air Orders Orders Electrocardiogram (07/08/17 02:50) Complete Blood Count With Diff (07/08/17 02:50) Comprehensive Metabolic Panel (07/08/17 02:50) Magnesium (Mg) (07/08/17 02:50) Troponin I (07/08/17 02:50) Ecg Monitoring (07/08/17 02:50) Iv Access Insert/Monitor (07/08/17 02:50) Oximetry (07/08/17 02:50) Oxygen Administration (07/08/17 02:50) Sodium Chloride 0.9% Flush (Ns Flush) (07/08/17 03:00) Chest, Pa & Lat (07/08/17 02:50) Influenzae A/B Antigen (07/08/17 02:50) Ketorolac Inj (Toradol Inj) (07/08/17 03:00) Albuterol-Ipratropium Neb (Duoneb Neb) (07/08/17 03:00) Sodium Chlor 0.9% 1000 Ml Inj (Ns 1000 M (07/08/17 04:15) Guaifen-Cod 200-20 Mg/10ml Liq (Robituss (07/08/17 04:30) Labs Laboratory Tests Test 07/08/17 02:35 White Blood Count 7.9 TH/MM3 Red Blood Count 4.78 MIL/MM3 Hemoglobin 14.7 GM/DL Hematocrit 44.2 % Mean Corpuscular Volume 92.5 FL Mean Corpuscular Hemoglobin 30.7 PG Mean Corpuscular Hemoglobin Concent 33.2 % Red Cell Distribution Width 12.8 % Platelet Count 225 TH/MM3 Mean Platelet Volume 8.7 FL Neutrophils (%) (Auto) 67.5 % Lymphocytes (%) (Auto) 21.1 % Monocytes (%) (Auto) 10.6 % Eosinophils (%) (Auto) 0.6 % Basophils (%) (Auto) 0.2 % Neutrophils # (Auto) 5.4 TH/MM3 Lymphocytes # (Auto) 1.7 TH/MM3 Monocytes # (Auto) 0.8 TH/MM3 Eosinophils # (Auto) 0.0 TH/MM3 Basophils # (Auto) 0.0 TH/MM3 CBC Comment DIFF FINAL Differential Comment Blood Urea Nitrogen 16 MG/DL Creatinine 0.95 MG/DL Random Glucose 95 MG/DL Total Protein 7.3 GM/DL Albumin 3.5 GM/DL Calcium Level 9.0 MG/DL Magnesium Level 2.1 MG/DL Alkaline Phosphatase 100 U/L Aspartate Amino Transf (AST/SGOT) 26 U/L Alanine Aminotransferase (ALT/SGPT) 21 U/L Total Bilirubin 0.6 MG/DL Sodium Level 139 MEQ/L Potassium Level 4.3 MEQ/L Chloride Level 106 MEQ/L Carbon Dioxide Level 24.2 MEQ/L Anion Gap 9 MEQ/L Estimat Glomerular Filtration Rate 59 ML/MIN Troponin I LESS THAN 0.02 NG/ML MDM Medical Decision Making Medical Screen Exam Complete: Yes Emergency Medical Condition: Yes Medical Record Reviewed: Yes Interpretation(s) The EKG shows sinus tachycardia of 101 with left atrial enlargement and right ventricular hypertrophy. This is consistent with the patient's chronic pulmonary disease. There is no acute ST elevation or depression on the EKG. The influenza A/B antigen is positive for flu a and. The CBC is normal. The complete metabolic profile shows a GFR 59 but is otherwise normal. The troponin I is normal. Differential Diagnosis Pleuritic chest pain, pneumothorax, acute coronary syndrome-unlikely, pneumonia , bronchitis, bronchospasm, pulmonary embolism-unlikely Narrative Course The patient has a flu syndrome. Her cough is a persistent and aggravating symptom and she will be given Robitussin-DAC. She will also get Percocet 5/325 4 times a day for the pleuritic chest pain. Additional Instructions: The cough syrup is 10 cc every 4-6 hours as needed. The Percocet is one tablet every 6 hours as needed for pain. Follow-up next week with your primary care physician. Med/Other Pt SpecificInfo: Prescription(s) given Scripts Oxycodone-Acetaminophen (Percocet) 5-325 mg Tab 1-2 TAB PO Q6H Y for PAIN, #30 TAB 0 Refills Prov: Andre Rodgers MD 07/08/17 Fjhtisygbnjifrg-Exnlkdt-Wnykpvhcjva Liq (Guaifenesin DAC Liq) 30-10-100 Mg/5 Ml Soln 10 ML PO Q4H Y for COUGH AND/OR COLD SYMPTOMS, #1 BOTTLE 0 Refills Prov: Andre Rodgers MD 07/08/17 Disposition: 01 DISCHARGE HOME Condition: Stable Andre Rodgers MD Jul 08, 2017 02:57
[2017-07-08] MEDS ORDERED: KETOROLAC TROMETHAMINE 60 MG/2 ML (IM) VIAL IVP ONE (03:00)
[2017-07-08] MEDS ORDERED: SODIUM CHLORIDE 0.9% FLUSH 10 ML FLUSH IVF PRN (03:00)
[2017-07-08] MEDS: RESP: ALBUTEROL 2.5 MG/IPRATROPIUM 0.5 MG NEB (SCH) INH ×3 (03:02→03:25)
[2017-07-08 03:28] LABS: AUTOMATED NEUTROPHIL # 5.4 TH/MM3 (1.8-7.7); BASOPHIL % 0.2 % (0.0-2.0); EOSINOPHIL % 0.6 % (0.0-4.0); HEMATOCRIT 44.2 % (35.0-46.0); HEMOGLOBIN 14.7 GM/DL (11.6-15.3); LYMPH % 21.1 % (9.0-44.0); LYMPHOCYTE # 1.7 TH/MM3 (1.0-4.8); MEAN CELL VOLUME 92.5 FL (80.0-100.0); MEAN CORPUSCULAR HEMOGLOBIN 30.7 PG (27.0-34.0); MEAN CORPUSCULAR HGB CONC 33.2 % (32.0-36.0); MEAN PLATELET VOLUME 8.7 FL (7.0-11.0); MONO % 10.6 % (0.0-8.0); MONOCYTE # 0.8 TH/MM3 (0-0.9); NEUT % 67.5 % (16.0-70.0); PLATELET COUNT 225 TH/MM3 (150-450); RED BLOOD COUNT 4.78 MIL/MM3 (4.00-5.30); RED CELL DISTRIBUTION WIDTH 12.8 % (11.6-17.2); WHITE BLOOD COUNT 7.9 TH/MM3 (4.0-11.0)
[2017-07-08 03:46] LABS: CHLORIDE 106 MEQ/L (98-107); SODIUM (NA) 139 MEQ/L (136-145)
[2017-07-08 03:50] LABS: ALBUMIN 3.5 GM/DL (3.4-5.0); BICARBONATE 24.2 MEQ/L (21.0-32.0); BLOOD UREA NITROGEN 16 MG/DL (7-18); GLUCOSE,RANDOM 95 MG/DL (74-106); MAGNESIUM 2.1 MG/DL (1.5-2.5)
[2017-07-08 03:53] LABS: ALT (GPT) 21 U/L (10-53); AST (GOT) 26 U/L (15-37); CREATININE 0.95 MG/DL (0.50-1.00); GLOMERULAR FILTRATION RATE 59 ML/MIN (>89)
[2017-07-08 03:54] LABS: TOTAL BILIRUBIN ADULT 0.6 MG/DL (0.2-1.0); TOTAL PROTEIN 7.3 GM/DL (6.4-8.2)
[2017-07-08 03:56] LABS: ALKALINE PHOSPHATASE 100 U/L (45-117)
--- NOTE | 2017-07-08 03:57 | RADRPT ---
EXAM DATE/TIME: 07/08/2017 03:07 [facility] COMPARISON: CHEST SINGLE AP, January 15, 2017, 16:54. INDICATIONS : Cough. MEDICAL HISTORY : Chronic obstructive pulmonary disease. Diverticulitis. Smoker SURGICAL HISTORY : Tubal ligation. Hernia repair ENCOUNTER: Initial ACUITY: 2 days PAIN SCORE: 6/10 LOCATION: Bilateral chest FINDINGS: PA and lateral views of the chest demonstrate the lungs to be symmetrically aerated without evidence of mass, infiltrate or effusion. Hyperaeration of both lung odell. No significant change has occurr ed. The The cardiomediastinal contours are unremarkable. Osseous structures are intact. CONCLUSION: No acute disease. No significant change has occurred. Justin Wilhelm MD on July 08, 2017 at 3:54 Board Certified Radiologist. This report was verified electronically.
[2017-07-08 03:58] LABS: TROPONIN I LESS THAN 0.02 NG/ML (0.02-0.05)
[2017-07-08] MEDS: SODIUM CHLOR 0.9% 1000 ML INJ 1,000 ML IV SCH ×2 (04:09→04:11)
[2017-07-08] MEDS ORDERED: guaiFENesin/DEXTROMETHORPHAN 200 MG/20 MG/10 ML CUP PO ONE (04:15)
[2017-07-08] MEDS ORDERED: GUAISOL PO (04:15)
[2017-07-08] MEDS ORDERED: PERC5TAB12 PO (04:24)
[2017-07-08] MEDS ORDERED: guaiFENesin/CODEINE SYRUP 200 MG/20 MG/10 ML CUP PO ONE (04:30)
--- NOTE | 2017-07-08 17:43 | EKG ---
Date Performed: 07/08/2017 Time Performed: 02:24:42 PTAGE: 66 years EKG: SINUS TACHYCARDIA POSSIBLE LEFT ATRIAL ENLARGEMENT PATTERN CONSISTENT WITH PULMONARY DISEAS E POSSIBLE RIGHT VENTRICULAR HYPERTROPHY ABNORMAL ECG INTERPRETATION BASED ON A DEFAULT AGE OF 39 ALEXI LEAVITT PREVIOUS TRACING : 01/16/2017 08.02 Since previous tracing, no significant change noted DOCTOR: Ramirez Alicia Interpretating Date/Time 07/08/2017 17:42:22
== END 2017-07-08 07:12 | disposition home or self-care (01) ==
LOC: PHED 02:15
DX: J10.1 Influenza due to other identified influenza virus with other respiratory manifestations (principal); R05 Cough; J44.9 Chronic obstructive pulmonary disease, unspecified; I10 Essential (primary) hypertension; R00.0 Tachycardia, unspecified; Z88.2 Allergy status to sulfonamides; Z79.01 Long term (current) use of anticoagulants
CPT/HCPCS: 71046; 80053; 83735; 84484; 85025; 87804; 93005; 94640; 94664; 96361; 96374; 99285; J1885; J7030

== ENCOUNTER 2017-10-26 21:26 | Emergency (ER) | payer OTHER ==
[~2017-10-26] VITALS: Ht 160 cm; Wt 48.3 kg
[~2017-10-26 21:26] MED LIST changes: -ALBUAER3 INH; +GUAISOL PO; +PERC5TAB12 PO; -PROM25TA10 PO; +SYMB80AE INH; +XARE15TA PO
[2017-10-26 21:30] VITALS: BP 167/74; PULSE 76; RESP 18; TEMP 98.8; O2SAT 95
--- NOTE | 2017-10-26 22:10 | PD ---
HPI Chief Complaint: Skin Problem Time Seen by Provider: 22:03 Travel History International Travel<30 days: No Contact w/Intl Traveler<30days: No Traveled to known affect area: No History of Present Illness HPI 66-year-old female presents to the emergency department complaining of left forearm pain and bruising 1 week. Patient reports she has chronic medical conditions including chronic recurrent abdominal pain requiring her to visit the hospital frequently and patient had IV access obtained last week and noted bruising after the IV access was obtained and since that time has continued to have bruising to the forearm which she reports as very tender. Patient does not report any hand or overall upper extremity swelling. Patient does not report any other area of pain or discomfort. Patient is prescribed Xarelto for DVT of the right upper extremity. Patient went to urgent care and was encouraged to come to the emergency department for evaluation. The patient rates her discomfort 3/10 in intensity. PFSH Past Medical History Narrative Medical Arthritis COPD anxiety DVT superficial thrombophlebitis Xarelto therapy diverticulitis esophageal ulcer herniorrhaphy; no tobacco use no alcohol use; nursing notes reviewed Hx Anticoagulant Therapy: Yes Arthritis: Yes Anxiety: Yes Heart Rhythm Problems: No Cardiac Catheterization: No High Cholesterol: No Chest Pain: Yes Congestive Heart Failure: No COPD: Yes Cerebrovascular Accident: No Diabetes: No Diminished Hearing: No Diverticulitis: Yes Deep Vein Thrombosis: Yes (RIGHT ARM, UNKNOWN CAUSE) Heparin Induced Thrombocytopen: No Hypertension: Yes (NO MEDS) Kidney Stones: Yes Respiratory: Yes (COPD) Immunizations Current: Yes Myocardial Infarction: No Pneumonia: Yes Ulcer: Yes (ESOPHAGEAL ULCER) ?: Not Menopausal: Yes : 6 Para: 6 Tubal Ligation: Yes Past Surgical History Abdominal Surgery: Yes (strangulated hernia repair x2) Section: Yes (X 1) Coronary Artery Bypass Graft: No Pacemaker: No Other Surgery: Yes (DVT EXTRACTION RIGHT ARM: 2015) Social History Alcohol Use: No Tobacco Use: No (STATES QUIT 07/04/17, SMOKED SINCE AGE 17) Substance Use: No Allergies-Medications (Allergen,Severity, Reaction): Coded Allergies: sulfamethoxazole (Unverified Allergy, Severe, HIVES, 10/26/17) trimethoprim (Unverified Allergy, Severe, HIVES, 10/26/17) Reported Meds & Prescriptions Reported Meds & Active Scripts Active Reported Alendronate (Alendronate Sodium) 70 Mg Tab 70 Mg PO Q7D Pantoprazole (Pantoprazole Sodium) 40 Mg Tab 40 Mg PO DAILY Cipro (Ciprofloxacin HCl) 500 Mg Tab 500 Mg PO BID Xarelto (Rivaroxaban) 15 Mg Tab 15 Mg PO DAILY Symbicort Inh (Budesonide/Formoterol Fumarate) 80-4.5 Mcg/Act Aero 2 Puff INH Q12HR Review of Systems Except as stated in HPI: all other systems reviewed are Neg Physical Exam Narrative GENERAL: Well-developed well-nourished thin female no acute distress no respiratory distress SKIN: Warm and dry. HEAD: Normocephalic. EYES: No scleral icterus. No injection or drainage. NECK: Supple, trachea midline. No JVD or lymphadenopathy. CARDIOVASCULAR: Regular rate and rhythm without murmurs, gallops, or rubs. RESPIRATORY: Breath sounds equal bilaterally. No accessory muscle use. GASTROINTESTINAL: Abdomen soft, non-tender, nondistended. MUSCULOSKELETAL: No cyanosis, or edema. Attention left upper extremity no edema subacute ecchymosis and tenderness noted to the right forearm without palpable cording radial ulnar pulses are 2+ to palpation capillary refill is brisk and less than 2 seconds per digit intact range of motion of digits of the left hand and wrist; proximally no soft tissue swelling tenderness edema or axillary lymphadenopathy. BACK: Nontender without obvious deformity. No CVA tenderness. Data Data Last Documented VS Vital Signs Date Time Temp Pulse Resp B/P (MAP) Pulse Ox O2 Delivery O2 Flow Rate FiO2 10/26/17 23:30 63 14 146/74 (98) 95 Room Air 10/26/17 21:30 98.8 Orders Orders Complete Blood Count With Diff (10/26/17 22:03) Act Partial Throm Time (Ptt) (10/26/17 22:03) Prothrombin Time / Inr (Pt) (10/26/17 22:03) Us Arm Venous Doppler (10/26/17 ) Labs Laboratory Tests Test 10/26/17 22:15 White Blood Count 8.4 TH/MM3 Red Blood Count 4.52 MIL/MM3 Hemoglobin 13.8 GM/DL Hematocrit 41.7 % Mean Corpuscular Volume 92.2 FL Mean Corpuscular Hemoglobin 30.4 PG Mean Corpuscular Hemoglobin Concent 33.0 % Red Cell Distribution Width 12.4 % Platelet Count 294 TH/MM3 Mean Platelet Volume 8.0 FL Neutrophils (%) (Auto) 54.2 % Lymphocytes (%) (Auto) 35.7 % Monocytes (%) (Auto) 7.4 % Eosinophils (%) (Auto) 1.7 % Basophils (%) (Auto) 1.0 % Neutrophils # (Auto) 4.7 TH/MM3 Lymphocytes # (Auto) 3.0 TH/MM3 Monocytes # (Auto) 0.6 TH/MM3 Eosinophils # (Auto) 0.1 TH/MM3 Basophils # (Auto) 0.1 TH/MM3 CBC Comment DIFF FINAL Differential Comment Prothrombin Time 11.1 SEC Prothromb Time International Ratio 1.1 RATIO Activated Partial Thromboplast Time 29.1 SEC MDM Medical Decision Making Medical Screen Exam Complete: Yes Emergency Medical Condition: Yes Medical Record Reviewed: Yes Interpretation(s) Coags: Within normal range PT 11.1/INR 1.1/APTT 29.1 Last Impressions Upper Extremity Ultrasound 10/26/17 0000 Signed Impressions: Service Date/Time: Thursday, October 26, 2017 22:56 - CONCLUSION: Normal examination. Ko Langford MD CBC & BMP Diagram 10/26/17 22:15 Vital Signs Date Time Temp Pulse Resp B/P (MAP) Pulse Ox O2 Delivery O2 Flow Rate FiO2 10/26/17 23:30 63 14 146/74 (98) 95 Room Air 10/26/17 21:30 98.8 76 18 167/74 (105) 95 Differential Diagnosis Ecchymosis, superficial thrombophlebitis, unlikely DVT Narrative Course Specimens collected for hemoglobin hematocrit platelet count PT PTT an ultrasound of the left upper extremity Patient informed of lab results and ultrasound results and stable for outpatient management Diagnosis Primary Impression: Ecchymosis of forearm Referrals: Primary Care Physician call for appointment Patient Instructions: General Instructions Additional Instructions: May use ice intermittently for first 12-24 hours then moist heat for comfort May take acetaminophen/Tylenol as needed for discomfort Elevate left upper extremity Follow-up with your primary care provider Return to the emergency department for any concerns or change in condition Disposition: 01 DISCHARGE HOME Condition: Stable Josselyn Woodall MD October 26, 2017 22:10
[2017-10-26 22:36] LABS: AUTOMATED NEUTROPHIL # 4.7 TH/MM3 (1.8-7.7); BASOPHIL # 0.1 TH/MM3 (0-0.2); EOSINOPHIL # 0.1 TH/MM3 (0-0.4); EOSINOPHIL % 1.7 % (0.0-4.0); HEMATOCRIT 41.7 % (35.0-46.0); HEMOGLOBIN 13.8 GM/DL (11.6-15.3); LYMPH % 35.7 % (9.0-44.0); MEAN CELL VOLUME 92.2 FL (80.0-100.0); MEAN CORPUSCULAR HEMOGLOBIN 30.4 PG (27.0-34.0); MONO % 7.4 % (0.0-8.0); MONOCYTE # 0.6 TH/MM3 (0-0.9); NEUT % 54.2 % (16.0-70.0); PLATELET COUNT 294 TH/MM3 (150-450); RED BLOOD COUNT 4.52 MIL/MM3 (4.00-5.30); RED CELL DISTRIBUTION WIDTH 12.4 % (11.6-17.2); WHITE BLOOD COUNT 8.4 TH/MM3 (4.0-11.0)
[2017-10-26] MEDS ORDERED: PANT20TA2 PO (22:37)
[2017-10-26] MEDS ORDERED: CIPR-9 PO (22:37)
[2017-10-26] MEDS ORDERED: ALEN1TAB48 PO (22:40)
[2017-10-26] MEDS ORDERED: PANT40TA3 PO (22:40)
[2017-10-26 23:10] LABS: INTERNATIONAL NORMALIZED RATIO 1.1 RATIO; PROTHROMBIN TIME - PATIENT 11.1 SEC (9.8-11.6)
--- NOTE | 2017-10-26 23:25 | RADRPT ---
EXAM DATE/TIME: 10/26/2017 22:56 [facility] COMPARISON: No previous studies available for comparison. INDICATIONS : Left forearm pain and bruising x 1 week. MEDICAL HISTORY : Arthritis. Chronic obstructive pulmonary disease. Renal calculi. DVT - Right arm. Superficial Thromb ophlebitis. Esophageal Ulcer. Diverticulitis. Hypertension. SURGICAL HISTORY : section. Strangulated Hernia repair x 2. ENCOUNTER: Initial ACUITY: 1 week PAIN SCORE: 3/10 LOCATION: Left arm. FINDINGS: There is spontaneous flow documented in the brachial, basilic, cephalic, axillary, and subclavian vei ns. The vessels are compressible and augmentation response is documented. No filling defects are se en. The flow is phasic with respiration. Direction of flow in the jugular vein is caudal. CONCLUSION: Normal examination. Ko Langford MD on October 26, 2017 at 23:23 Board Certified Radiologist. This report was verified electronically.
[2017-10-26 23:30] VITALS: BP 146/74; PULSE 63; RESP 14; O2SAT 95
== END 2017-10-27 00:16 | disposition home or self-care (01) ==
LOC: PHED 21:26
DX: S50.11XA Contusion of right forearm, initial encounter (principal); M19.90 Unspecified osteoarthritis, unspecified site; F41.9 Anxiety disorder, unspecified; J44.9 Chronic obstructive pulmonary disease, unspecified; I10 Essential (primary) hypertension; Y84.8 Other medical procedures as the cause of abnormal reaction of the patient, or of later complication, without mention of misadventure at the time of the procedure; Z87.442 Personal history of urinary calculi; Z79.899 Other long term (current) drug therapy; Z88.2 Allergy status to sulfonamides
CPT/HCPCS: 85025; 85610; 85730; 93971; 99284

== ENCOUNTER 2017-11-21 09:34 | Emergency (ER) | payer OTHER ==
[~2017-11-21] VITALS: Ht 160 cm; Wt 48.0 kg
[~2017-11-21 09:34] MED LIST changes: +ALEN1TAB48 PO; +CIPR-9 PO; -GUAISOL PO; +PANT40TA3 PO; -PERC5TAB12 PO
[2017-11-21 09:37] VITALS: BP 123/55; PULSE 94; RESP 18; TEMP 98.3; O2SAT 98
[2017-11-21] MEDS ORDERED: AMOX500C PO (09:57)
--- NOTE | 2017-11-21 10:23 | PD ---
HPI Chief Complaint: Abdominal Pain Time Seen by Provider: 10:22 Travel History International Travel<30 days: No Contact w/Intl Traveler<30days: No Traveled to known affect area: No History of Present Illness HPI 66-year-old female came to the emergency room with history of right groin pain sudden onset for past few hours. Patient seems in significant distress. Vital signs were stable however. No history of hematuria, nausea vomiting. Patient says last time she had pain like this she was diagnosed with inguinal hernia with incarceration. She asked me not to give her anything for pain. No aggravating or relieving factors identified. No radiation of the pain. PFSH Past Medical History Narrative Medical List of her past medical, surgical, social and family history is reviewed from the nursing note. Hx Anticoagulant Therapy: Yes Arthritis: Yes Anxiety: Yes Heart Rhythm Problems: No Cardiac Catheterization: No High Cholesterol: No Chest Pain: Yes Congestive Heart Failure: No COPD: Yes Cerebrovascular Accident: No Diabetes: No Diminished Hearing: No Diverticulitis: Yes Deep Vein Thrombosis: Yes (RIGHT ARM, UNKNOWN CAUSE) Gastrointestinal Disorders: Yes (BARRETS ESOPHAGUS) Heparin Induced Thrombocytopen: No Hypertension: Yes (NO MEDS) Kidney Stones: Yes Respiratory: Yes (COPD) Immunizations Current: Yes Myocardial Infarction: No Pneumonia: Yes Ulcer: Yes (ESOPHAGEAL ULCER) Influenza Vaccination: Yes ?: Not Menopausal: Yes : 6 Para: 6 Tubal Ligation: Yes Past Surgical History Abdominal Surgery: Yes (strangulated hernia repair x2) Section: Yes (X 1) Coronary Artery Bypass Graft: No Gynecologic Surgery: Yes (LEEP) Pacemaker: No Other Surgery: Yes (DVT EXTRACTION RIGHT ARM: 2015) Family History Family Myocardial Infarction: Yes (FATHER PASSED @ AGE 44 FROM [place]) Social History Alcohol Use: No Tobacco Use: No (STATES QUIT 09/23/17, SMOKED SINCE AGE 17) Substance Use: No Allergies-Medications (Allergen,Severity, Reaction): Coded Allergies: sulfamethoxazole (Unverified Allergy, Severe, HIVES, 10/26/17) trimethoprim (Unverified Allergy, Severe, HIVES, 10/26/17) Comments List of her allergies reviewed from the nursing note. Reported Meds & Prescriptions Reported Meds & Active Scripts Active Reported Amoxicillin 500 Mg Cap 500 Mg PO BID Alendronate (Alendronate Sodium) 70 Mg Tab 70 Mg PO Q7D Pantoprazole (Pantoprazole Sodium) 40 Mg Tab 40 Mg PO DAILY Xarelto (Rivaroxaban) 15 Mg Tab 15 Mg PO DAILY Symbicort Inh (Budesonide/Formoterol Fumarate) 80-4.5 Mcg/Act Aero 2 Puff INH Q12HR Narrative Medication List of her home medications reviewed from the nursing note. Review of Systems Except as stated in HPI: all other systems reviewed are Neg Gastrointestinal: Positive: Abdominal Pain Physical Exam Narrative GENERAL: Awake, alert, significant distress SKIN: Focused skin assessment warm/dry. HEAD: Atraumatic. Normocephalic. EYES: Pupils equal and round. No scleral icterus. No injection or drainage. ENT: No nasal bleeding or discharge. Mucous membranes pink and moist. NECK: Trachea midline. No JVD. CARDIOVASCULAR: Regular rate and rhythm. No murmur appreciated. RESPIRATORY: No accessory muscle use. Clear to auscultation. Breath sounds equal bilaterally. GASTROINTESTINAL: Abdomen soft, tender in the right lower quadrant, nondistended. Hepatic and splenic margins not palpable. MUSCULOSKELETAL: No obvious deformities. No clubbing. No cyanosis. No edema. NEUROLOGICAL: Awake and alert. No obvious cranial nerve deficits. Motor grossly within normal limits. Normal speech. PSYCHIATRIC: Appropriate mood and affect; insight and judgment normal. Data Data Last Documented VS Vital Signs Date Time Temp Pulse Resp B/P (MAP) Pulse Ox O2 Delivery O2 Flow Rate FiO2 11/21/17 12:25 11/21/17 12:15 63 16 94 Room Air 11/21/17 09:37 98.3 Orders Orders Complete Blood Count With Diff (11/21/17 10:31) Comprehensive Metabolic Panel (11/21/17 10:31) Lipase (11/21/17 10:31) Urinalysis - C+S If Indicated (11/21/17 10:31) Ct Abd/Pel W/O Iv Contrast (11/21/17 10:31) Iv Access Insert/Monitor (11/21/17 10:31) Ecg Monitoring (11/21/17 10:31) Oximetry (11/21/17 10:31) Sodium Chlor 0.9% 1000 Ml Inj (Ns 1000 M (11/21/17 10:31) Sodium Chloride 0.9% Flush (Ns Flush) (11/21/17 10:45) Ed Discharge Order (11/21/17 12:17) Labs Laboratory Tests Test 11/21/17 11:00 11/21/17 11:45 White Blood Count 8.6 TH/MM3 Red Blood Count 4.55 MIL/MM3 Hemoglobin 14.3 GM/DL Hematocrit 41.4 % Mean Corpuscular Volume 91.1 FL Mean Corpuscular Hemoglobin 31.4 PG Mean Corpuscular Hemoglobin Concent 34.5 % Red Cell Distribution Width 13.2 % Platelet Count 334 TH/MM3 Mean Platelet Volume 8.0 FL Neutrophils (%) (Auto) 64.9 % Lymphocytes (%) (Auto) 28.7 % Monocytes (%) (Auto) 4.6 % Eosinophils (%) (Auto) 1.1 % Basophils (%) (Auto) 0.7 % Neutrophils # (Auto) 5.5 TH/MM3 Lymphocytes # (Auto) 2.5 TH/MM3 Monocytes # (Auto) 0.4 TH/MM3 Eosinophils # (Auto) 0.1 TH/MM3 Basophils # (Auto) 0.1 TH/MM3 CBC Comment DIFF FINAL Differential Comment Blood Urea Nitrogen 15 MG/DL Creatinine 0.73 MG/DL Random Glucose 89 MG/DL Total Protein 7.2 GM/DL Albumin 3.7 GM/DL Calcium Level 9.8 MG/DL Alkaline Phosphatase 92 U/L Aspartate Amino Transf (AST/SGOT) 21 U/L Alanine Aminotransferase (ALT/SGPT) 25 U/L Total Bilirubin 0.6 MG/DL Sodium Level 141 MEQ/L Potassium Level 4.0 MEQ/L Chloride Level 107 MEQ/L Carbon Dioxide Level 25.9 MEQ/L Anion Gap 8 MEQ/L Estimat Glomerular Filtration Rate 80 ML/MIN Lipase 106 U/L Urine Collection Type CLEAN CATCH Urine Color YELLOW Urine Turbidity CLEAR Urine pH 6.0 Urine Specific [place] LESS/EQUAL 1.005 Urine Protein NEG mg/dL Urine Glucose (UA) NEG mg/dL Urine Ketones NEG mg/dL Urine Occult Blood NEG Urine Nitrite NEG Urine Bilirubin NEG Urine Urobilinogen 0.2 MG/DL Urine Leukocyte Esterase NEG Urine RBC 0-3 /hpf Urine WBC 0-2 /hpf Urine Squamous Epithelial Cells 0-5 /hpf Microscopic Urinalysis Comment CULT NOT INDICATED MDM Medical Decision Making Medical Screen Exam Complete: Yes Emergency Medical Condition: Yes Medical Record Reviewed: Yes Differential Diagnosis Renal colic, musculoskeletal pain Narrative Course 12:23 PM blood test results are back and within normal limit. UA is negative. CT scan does not show any acute findings. Patient did not want anything for pain and she will be discharged home. Procedures EKG Prior to Arrival: No Diagnosis Primary Impression: Groin pain, chronic, right Referrals: Primary Care Physician Additional Instructions: Take Tylenol/Motrin/ibuprofen/Advil for pain relief. These medications available [id number]. Follow-up with your primary care. Med/Other Pt SpecificInfo: No Change to Meds Disposition: 01 DISCHARGE HOME Condition: Stable Nazario Avila MD November 21, 2017 10:23
[2017-11-21] MEDS ORDERED: SODIUM CHLOR 0.9% 1000 ML INJ 1,000 ML IV SCH (10:31)
[2017-11-21 10:45] VITALS: O2SAT 95
[2017-11-21] MEDS ORDERED: SODIUM CHLORIDE 0.9% FLUSH 10 ML FLUSH IV FLUSH PRN (10:45)
[2017-11-21 11:05] VITALS: BP 142/66; PULSE 82; RESP 22; O2SAT 96
[2017-11-21 11:10] LABS: AUTOMATED NEUTROPHIL # 5.5 TH/MM3 (1.8-7.7); BASOPHIL # 0.1 TH/MM3 (0-0.2); BASOPHIL % 0.7 % (0.0-2.0); EOSINOPHIL # 0.1 TH/MM3 (0-0.4); EOSINOPHIL % 1.1 % (0.0-4.0); HEMATOCRIT 41.4 % (35.0-46.0); HEMOGLOBIN 14.3 GM/DL (11.6-15.3); LYMPH % 28.7 % (9.0-44.0); LYMPHOCYTE # 2.5 TH/MM3 (1.0-4.8); MEAN CELL VOLUME 91.1 FL (80.0-100.0); MEAN CORPUSCULAR HEMOGLOBIN 31.4 PG (27.0-34.0); MEAN CORPUSCULAR HGB CONC 34.5 % (32.0-36.0); MONO % 4.6 % (0.0-8.0); MONOCYTE # 0.4 TH/MM3 (0-0.9); NEUT % 64.9 % (16.0-70.0); PLATELET COUNT 334 TH/MM3 (150-450); RED BLOOD COUNT 4.55 MIL/MM3 (4.00-5.30); RED CELL DISTRIBUTION WIDTH 13.2 % (11.6-17.2); WHITE BLOOD COUNT 8.6 TH/MM3 (4.0-11.0)
[2017-11-21 11:21] LABS: CHLORIDE 107 MEQ/L (98-107); SODIUM (NA) 141 MEQ/L (136-145)
[2017-11-21 11:25] LABS: CALCIUM 9.8 MG/DL (8.5-10.1)
[2017-11-21 11:26] LABS: ALBUMIN 3.7 GM/DL (3.4-5.0); BICARBONATE 25.9 MEQ/L (21.0-32.0); BLOOD UREA NITROGEN 15 MG/DL (7-18); GLUCOSE,RANDOM 89 MG/DL (74-106)
[2017-11-21 11:28] LABS: ALT (GPT) 25 U/L (10-53); AST (GOT) 21 U/L (15-37)
[2017-11-21 11:29] LABS: CREATININE 0.73 MG/DL (0.50-1.00); GLOMERULAR FILTRATION RATE 80 ML/MIN (>89)
[2017-11-21 11:30] LABS: TOTAL BILIRUBIN ADULT 0.6 MG/DL (0.2-1.0); TOTAL PROTEIN 7.2 GM/DL (6.4-8.2)
[2017-11-21 11:31] LABS: ALKALINE PHOSPHATASE 92 U/L (45-117)
[2017-11-21 11:49] LABS: BILIRUBIN, URINE NEG (NEG); BLOOD, URINE NEG (NEG); GLUCOSE,URINE NEG (NEG); KETONE, URINE NEG (NEG); NITRITE,URINE NEG (NEG); URINE COLOR YELLOW (YELLW/STRAW); URINE LEUKOCYTE ESTERASE NEG (NEG)
[2017-11-21 12:03] LABS: RBC, URINE 0-3 /hpf (0-3); SQUAMOUS EPITHELIAL CELL URINE 0-5 /hpf (0-5); WBC, URINE 0-2 /hpf (0-5)
[2017-11-21 12:15] VITALS: BP 151/66; PULSE 63; RESP 16; O2SAT 94
--- NOTE | 2017-11-21 12:15 | RADRPT ---
EXAM DATE: 11/21/2017 12:07 PM EDT AGE/SEX: 66 years / Female INDICATIONS: Right lower quadrant pain. CLINICAL DATA: This is the patient's initial encounter. Patient reports that signs and symptoms have been present for 1 day and indicates a pain score of 7/10. MEDICAL/SURGICAL HISTORY: Renal calculi. Chronic obstructive pulmonary disease. Deep venous t hrombosis. Hypertension. Diverticulitis. Ulcers. Tubal ligation. section. Inguinal her terrence repair. RADIATION DOSE: 5.56 CTDI (mGy) COMPARISON: [facility] – [place] ABDOMEN & PELVIS W/O CONTRAST, 04/07/2013. . TECHNIQUE: Multiple contiguous axial images were obtained through the abdomen. Images were obtained using multiple row detector helical technique. Using dose reduction techniques, radiation dose was ke pt as low as reasonably achievable to obtain optimal diagnostic quality images. FINDINGS: Lung bases demonstrate minimal scarring. No acute findings in the liver, spleen, left kidney pancreas . The right kidney is atrophic relative to the left with multiple tiny nonobstructing calcifications similar to 2013 comparison. There is colonic diverticulosis but no inflammatory changes are seen to suggest acute diverticulitis. There are now multiple surgical clips in the right inguinal region characteristic of prior inguinal hernia repair. Previous lipoma is not visualized on the current exam. No acute bony abnormalities. Moderate degenerative disc disease with mild scoliosis. CONCLUSION: 1. No acute findings. Previous right inguinal hernia repair. No inflammatory changes identified with in the abdomen and pelvis. Colonic diverticulosis. Tiny nonobstructing right renal calcifications. Electronically signed by: Jorge Alberto Donald MD 11/21/2017 12:14 PM EDT
== END 2017-11-21 12:25 | disposition home or self-care (01) ==
LOC: PHED 09:34
DX: R10.31 Right lower quadrant pain (principal); N20.0 Calculus of kidney; M19.90 Unspecified osteoarthritis, unspecified site; F41.9 Anxiety disorder, unspecified; J44.9 Chronic obstructive pulmonary disease, unspecified; I10 Essential (primary) hypertension; Z87.442 Personal history of urinary calculi; Z79.899 Other long term (current) drug therapy; Z88.2 Allergy status to sulfonamides
CPT/HCPCS: 74176; 80053; 81001; 83690; 85025; 96360; 99284; J7030